=== PATIENT | female | born 1980 | race African-American/Black ===

== ENCOUNTER 2021-03-25 07:54 | Outpatient (CLI) | payer OTHER | END 2021-03-25 07:55 | disposition home or self-care (01) | LOC: TBSIIMAG 07:54 | PROVIDERS: ATTEND Orthopaedic Surgery | DX: S83.92XA Sprain of unspecified site of left knee, initial encounter (principal); S83.282A Other tear of lateral meniscus, current injury, left knee, initial encounter; S83.242A Other tear of medial meniscus, current injury, left knee, initial encounter; M25.462 Effusion, left knee ==